=== PATIENT | female | born 1975 | race Caucasian/White ===

== ENCOUNTER 2018-05-26 14:07 | Outpatient (CLI) | payer OTHER ==
--- NOTE | 2018-05-26 15:35 | MRI ---
BRAIN MRI WITH AND WITHOUT CONTRAST: DATE: 05/26/2018. COMPARISON: None. HISTORY: Migraine headache with aura, pituitary adenoma. TECHNIQUE: Multiplanar, multisequence MR imaging of the brain is obtained with and without contrast using [facility] protocol. FINDINGS: The diffusion weighted imaging demonstrates no evidence for acute infarction. There is polypoid mucosal thickening involving the alveolar recess of the maxillary sinuses, right gr eater than left. There is no midline shift, mass effect, or ventricular enlargement. The arterial flow voids at the a xial level of the skull base appear patent on the T2 weighted imaging. The postcontrast imaging demonstrates no abnormal enhancement within the brain parenchyma. No sellar or suprasellar mass lesion is evident. The suprasellar cistern and optic chiasm appear grossly unre markable. IMPRESSION: No acute findings. POS: COLTEN
== END 2018-05-26 14:08 | disposition home or self-care (01) ==
LOC: TBSIIMAG 14:07
PROVIDERS: ATTEND Psychiatry & Neurology Neurology
DX: G43.109 Migraine with aura, not intractable, without status migrainosus (principal)
CPT/HCPCS: 70553